=== PATIENT | female | born 1975 | race Caucasian/White ===

== ENCOUNTER 2018-11-20 13:55 | Emergency (ER) | payer OTHER ==
[2018-11-20] MEDS ORDERED: ACETAMINOPHEN 325 MG TABLET PO ONE (17:18)
[2018-11-20] MEDS ORDERED: ONDANSETRON 4 MG TAB.RAPDIS PO ONE (17:18)
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
[2018-11-20] MEDS ORDERED: KETOROLAC TROMETHAMINE INJ/PF 30 MG/1 ML SDV IM ONE (18:19)
[2018-11-20] MEDS ORDERED: CYCLOBENZAPRINE HCL 10 MG TABLET PO ONE (18:19)
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
[2018-11-20 19:38] VITALS: BP 123/88
--- NOTE | 2018-11-20 23:36 | EKG REPORT ---
SEVERITY:- ABNORMAL ECG - SINUS TACHYCARDIA LEFT ATRIAL ABNORMALITY BORDERLINE INFERIOR Q WAVES : Confirmed by: Erika Geller MD 20-Nov-2018 23:35:25
== END 2018-11-20 19:36 | disposition home or self-care (01) ==
LOC: ER 13:55
DX: S09.90XA Unspecified injury of head, initial encounter (principal); M54.5 Low back pain; S16.1XXA Strain of muscle, fascia and tendon at neck level, initial encounter; V49.40XA Driver injured in collision with unspecified motor vehicles in traffic accident, initial encounter; Y93.89 Activity, other specified; Y92.410 Unspecified street and highway as the place of occurrence of the external cause; Y99.9 Unspecified external cause status; K21.9 Gastro-esophageal reflux disease without esophagitis; F32.9 Major depressive disorder, single episode, unspecified; I10 Essential (primary) hypertension; F41.9 Anxiety disorder, unspecified; Z90.49 Acquired absence of other specified parts of digestive tract; Z98.51 Tubal ligation status
CPT/HCPCS: 93005; 99284; 96372; 72070; 72125; 93010; S0119; J1885

== ENCOUNTER 2018-11-25 11:10 | Emergency (ER) | payer OTHER ==
[2018-11-25] MEDS ORDERED: PROMETHAZINE HCL 25 MG TABLET PO ONE (11:59)
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
[2018-11-25 14:47] VITALS: BP 131/83
== END 2018-11-25 15:01 | disposition home or self-care (01) ==
LOC: ER 11:10
DX: S09.90XA Unspecified injury of head, initial encounter (principal); R42 Dizziness and giddiness; R04.0 Epistaxis; V89.2XXA Person injured in unspecified motor-vehicle accident, traffic, initial encounter; I10 Essential (primary) hypertension; Z90.49 Acquired absence of other specified parts of digestive tract; Z98.51 Tubal ligation status
CPT/HCPCS: 70450; 99284

== ENCOUNTER 2019-11-14 08:19 | Emergency (ER) | payer SELFPAY ==
--- NOTE | 2019-11-14 08:52 | RADIOLOGY REPORT (SQ) ---
EXAM DESCRIPTION: CHEST 2 VIEWS IMAGES COMPLETED DATE/TIME: 11/14/2019 8:44 am REASON FOR STUDY: bone pain COMPARISON: PA and lateral views of the chest from 07/15/2011. EXAM PARAMETERS: NUMBER OF VIEWS: Two views. TECHNIQUE: PA and lateral views of the chest were obtained. RADIATION DOSE: NA LIMITATIONS: None. FINDINGS: LUNGS AND PLEURA: No consolidation, pleural effusion or pneumothorax. MEDIASTINUM AND HILAR STRUCTURES: No mediastinal or hilar contour abnormality. HEART AND VASCULAR STRUCTURES: The cardiac silhouette and pulmonary vasculature are within normal lewis its. BONES: No acute findings. HARDWARE: Cholecystectomy clips. OTHER: No other finding. IMPRESSION: No acute cardiopulmonary process. TECHNICAL DOCUMENTATION: JOB ID: [id number] 2010 [employer]- All Rights Reserved Reading location - IP/workstation name: [email or web address]
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
[2019-11-14 10:25] VITALS: BP 124/76
== END 2019-11-14 10:25 | disposition home or self-care (01) ==
LOC: ER 08:19
DX: S20.212A Contusion of left front wall of thorax, initial encounter (principal); S40.022A Contusion of left upper arm, initial encounter; R07.89 Other chest pain; M79.602 Pain in left arm; Y04.2XXA Assault by strike against or bumped into by another person, initial encounter; I10 Essential (primary) hypertension
CPT/HCPCS: 71046; 99284